=== PATIENT | male | born 1995 | race Caucasian/White ===

== ENCOUNTER 2023-10-30 15:09 | Emergency (ER) | payer OTHER ==
[2023-10-30 16:02] VITALS: TEMP 98.2; BMI 31.4
[2023-10-30] MEDS ORDERED: LIDOCAINE 4% PATCH TP ONE (16:17)
[2023-10-30] MEDS ORDERED: KETOROLAC TROMETHAMINE 15 MG/ML VIAL ONE (16:17)
[2023-10-30] MEDS: KETOROLAC TROMETHAMINE 15 MG/ML VIAL IM ONE (16:23)
[2023-10-30] MEDS: LIDOCAINE 4% PATCH TP ONE (16:24)
[2023-10-30] MEDS ORDERED: CYCLOBENZAPRINE HCL 5 MG TABLET ONE (17:37)
[2023-10-30] MEDS: CYCLOBENZAPRINE HCL 5 MG TABLET PO ONE (17:45)
[2023-10-30 17:48] VITALS: BP 117/70; PULSE 84; RESP 16
[2023-10-30] MEDS: ACETAMINOPHEN 325 MG TABLET (FP) PO ONE (18:45)
[2023-10-30] MEDS ORDERED: LIDOCAINE PATCH REMOVAL MC SCH (22:00)
[2023-10-31] MEDS ORDERED: CYCLOBENZAPRINE HCL 5 MG TABLET PO ONE (17:00)
== END 2023-10-30 19:30 | disposition home or self-care (01) ==
LOC: JER 15:09 → JERFT 15:09
PROC: 3E0133Z Introduction of Anti-inflammatory into Subcutaneous Tissue, Percutaneous Approach (ICD-10-PCS; principal; 2023-10-30)
DX: M54.50 Low back pain, unspecified (principal); X50.1XXA Overexertion from prolonged static or awkward postures, initial encounter; Y99.0 Civilian activity done for income or pay
CPT/HCPCS: 99284-25